=== PATIENT | male | born 1995 | race Caucasian/White ===

== ENCOUNTER → 2016-03-18 | Outpatient (CLI) | payer OTHER ==
--- NOTE | 2016-03-18 17:09 | Diagnostic Imaging Report ---
Indication: Low back pain. Findings: Lumbar vertebral body heights are maintained. The alignment is anatomic. The space is preserved. No acute or suspicious endplate irregularity. The oblique views revealed no spondylolysis defect. Impression: Unremarkable frontal, lateral and bilateral oblique lumbar radiographs. Dictated by: Dictated on workstation # [id number]
== END ==
LOC: RAD 15:56
PROVIDERS: ATTEND Chiropractor
DX: M54.5 Low back pain (principal)
CPT/HCPCS: 72110